=== PATIENT | female | born 1995 | race American Indian/Alaskan Native ===

== ENCOUNTER 2018-04-19 14:30 | Emergency (ER) | payer SELFPAY ==
[2018-04-19 14:46] VITALS: BP 129/91
[2018-04-19 15:28] LABS: HCG Qualitative,Urine Negative (Negative)
[2018-04-19 15:32] LABS: Bilirubin,Urine NEG (Negative); Blood,Urine NEG (Negative); Color,Urine Yellow (Yellow); Hyaline Casts,Urine 1 /LPF; Mucus,Urine FEW /HPF; Protein,Urine <15 mg/dL mg/dL (Negative); Urobilinogen,Urine < 2.0 mg/dL (<2.0)
== END 2018-04-19 21:15 | disposition left against medical advice (07) ==
LOC: ED 14:30
DX: R10.2 Pelvic and perineal pain (principal); Z53.21 Procedure and treatment not carried out due to patient leaving prior to being seen by health care provider
CPT/HCPCS: 81001; 81025

== ENCOUNTER 2021-10-24 08:56 | Emergency (ER) | payer MEDICAID ==
[2021-10-24 09:01] VITALS: BP 126/63
--- NOTE | 2021-10-24 09:38 | Emergency Department Report ---
ED General Adult HPI - General Chief complaint: Vaginal Bleeding Stated complaint: , BLEEDING Time Seen by Provider: 10/24/21 09:03 Source: patient, RN notes reviewed Mode of arrival: Ambulatory Limitations: No Limitations - History of Present Illness Initial comments: During the history and physical examination, I am chaperoned by Briana Penn The patient is a 26-year-old female. She is not known to myself previously. She is 3, para 1. She has a history of miscarriage x1, very distant history of gonorrhea/chlamydia, and also reports history of bariatric gastric sleeve surgery a few years ago. AREA LOSS PREVENTION MANAGER: [employer] The patient presents to the ER today with a complaint of painless vaginal bleeding for 2 days. It is now resolved. She denies additional complaints, trauma, heavy lifting, and irritative/obstructive urinary symptoms. She also denies recent vigorous sexual intercourse. -: Gradual, days(s) Consistency: intermittent, now resolved Improves with: none Worsens with: none Associated Symptoms: denies other symptoms - Related Data Previous Rx's Medication Instructions Recorded Last Taken Type Amoxicillin 500 mg PO TID 7 Days tablet 10/17/14 Unknown Rx Allergies Allergy/AdvReac Type Severity Reaction Status Date / Time No Known Allergies Allergy Unverified 10/25/13 17:10 ED Review of Systems ROS: Stated complaint: , BLEEDING Other details as noted in HPI Comment: All other systems reviewed and negative Gastrointestinal: denies: abdominal pain Genitourinary: other (Vaginal bleeding). denies: urgency, dysuria ED Past Medical Hx - Past Medical History Hx Asthma: Yes (young age) - Social History Smoking Status: Never Smoker Substance Use Type: Other - Medications Home Medications: Home Medications Medication Instructions Recorded Confirmed Last Taken Type Amoxicillin 500 mg PO TID 7 Days tablet 10/17/14 Unknown Rx ED Physical Exam - General Limitations: No Limitations General appearance: alert, in no apparent distress - Head Head exam: Present: atraumatic, normocephalic - Eye Eye exam: Present: normal appearance, EOMI. Absent: nystagmus - ENT ENT exam: Present: normal exam, normal orophraynx, mucous membranes moist, normal external ear exam - Neck Neck exam: Present: normal inspection, full ROM. Absent: tenderness, meningis mus - Respiratory Respiratory exam: Present: normal lung sounds bilaterally. Absent: respiratory distress, wheezes, rales, rhonchi, stridor, decreased breath sounds - Cardiovascular Cardiovascular Exam: Present: regular rate, normal rhythm, normal heart sounds. Absent: bradycardia, tachycardia, irregular rhythm, systolic murmur, diastolic murmur, rubs, gallop - GI/Abdominal GI/Abdominal exam: Present: soft. Absent: distended, tenderness, guarding, rebound, rigid, pulsatile mass - External exam: Present: normal external exam (Patient provided verbal consent for external examination. Chaperoned by Briana Penn). Absent: bleeding - Extremities Exam Extremities exam: Present: normal inspection, full ROM, other (2+ pulses noted in the bilateral upper and lower extremities. There is no palpable cord. negative Homans sign. Muscular compartments are soft. The pelvis is stable.). Absent: pedal edema, calf tenderness - Back Exam Back exam: Present: normal inspection, full ROM. Absent: tenderness, CVA tenderness (R), CVA tenderness (L), paraspinal tenderness, vertebral tenderness - Neurological Exam Neurological exam: Present: alert, oriented X3, normal gait, other (No facial droop. Tongue midline. Extraocular movements intact bilaterally. Facial sensation intact to light touch in V1, V2, V3 distribution bilaterally. 5 and a 5 strength in 4 extremities. Sensation intact to light touch in 4 extrem ities.). Absent: motor sensory deficit - Psychiatric Psychiatric exam: Present: normal affect, normal mood - Skin Skin exam: Present: warm, dry, intact, normal color. Absent: rash ED Course Vital Signs 10/24/21 10/24/21 09:00 09:01 Temperature 97.9 F 97.9 F Pulse Rate 83 84 Respiratory 18 18 Rate Blood Pressure 126/63 Blood Pressure 126/63 [Right] O2 Sat by Pulse 98 98 Oximetry - Reevaluation(s) Reevaluation #1: 10/24/21 11:32 Differential diagnosis, including but not limited to: Miscarriage, threatened versus inevitable, , versus ectopic Assessment and plan: 26-year-old female, who was afebrile, with reassuring vital signs, with a soft benign belly, without rebound, guarding or peritoneal signs, stable H&H, no vaginal bleeding my examination, contaminated urine sample, but with no irritative or obstructive urinary symptoms, likely presenting with threatened miscarriage. Rh pending, ultrasound results pending. Discussed this with the patient. She articulated understanding. Reassess after results have completed 10/24/21 12:52 Rh+. Ultrasound confirms intrauterine . Feels improved. On cell phone. No acute distress. Belly soft on repeat exam. Suspicious for threatened miscarriage versus failed . Expectant management, outpatient follow-up, return precautions reviewed. ED Medical Decision Making - Lab Data Result diagrams: 10/24/21 09:58 Vital Signs 10/24/21 10/24/21 09:00 09:01 Temperature 97.9 F 97.9 F Pulse Rate 83 84 Respiratory 18 18 Rate Blood Pressure 126/63 Blood Pressure 126/63 [Right] O2 Sat by Pulse 98 98 Oximetry - Radiology Data Radiology results: pending, report reviewed, image reviewed ULTRASOUND OBSTETRIC INDICATION / CLINICAL INFORMATION: vag bleed. TECHNIQUE: Transabdominal and Transvaginal. COMPARISON: None available. FINDINGS: GESTATIONAL SAC: Well-defined oval shape and intrauterine in location. Gestational sac measures 13.9 mm which would correspond to a 6 week 2 day gestation. YOLK SAC: No yolk sac is seen. EMBRYO/FETUS: No pole is seen. There is fluid noted in the cervix. ADNEXA: No significant abnormality. FREE FLUID: None. ADDITIONAL FINDINGS: None. IMPRESSION: 1. Gestational sac is identified within the uterine cavity. No yolk sac or pole is identified within this. Gestational sac size would correspond to a 6 week 2 day gestation. This appears to be an empty gestational sac. Signer Name: Colby Butt MD Signed: 10/24/2021 10:37 AM Workstation Name: [id number] Critical care attestation.: If time is entered above; I have spent that time in minutes in the direct care of this critically ill patient, excluding procedure time. ED Disposition Clinical Impression: Threatened miscarriage Disposition: 01 HOME / SELF CARE / HOMELESS Is pt being admited?: No Does the pt Need Aspirin: No Condition: Stable Instructions: Threatened Miscarriage Additional Instructions: Rest, avoid heavy lifting, and strenuous physical activities. Do not engage in sexual sexual activity, or contact athletics until cleared to do so by her primary care doctor or senior microstrategy developer. Patient is likely having a threatened miscarriage. Ultrasound today suggested that the patient is 6 weeks and 2 days . Laboratory studies were otherwise nonactionable. We do recommend the patient follow-up with an outpatient numerical control tool programmer within the next 3 days for repeat checkup and evaluation. Please return to the emergency room right away with new pain, worsened pain, migration of pain, projectile vomiting, change in mental status, confusion, inability to tolerate liquid feeds, new, worsened or different symptoms not present on the initial emergency room evaluation. Return right away for bleeding more than 2 pads soaked per hour Referrals: PRIMARY CAREMD [Primary Care Provider] - 3-5 Days [facility] [Provider Group] - 3-5 Days Forms: Work/School Release Form(ED)
[2021-10-24 10:09] LABS: Bacteria,Urine 1+ /HPF (Negative); Bilirubin,Urine NEG (Negative); Blood,Urine LG (Negative); Color,Urine Yellow (Yellow); Mucus,Urine 3+ /HPF
[2021-10-24 10:23] LABS: Basophils % (Auto) 0.5 % (0.0-1.8); Eosinophils # (Auto) 0.1 K/mm3 (0.0-0.4); Eosinophils % (Auto) 1.5 % (0.0-4.3); Hematocrit 41.1 % (30.3-42.9); Hemoglobin 13.1 gm/dl (10.1-14.3); Lymphocytes # (Auto) 2.2 K/mm3 (1.2-5.4); Lymphocytes % (Auto) 33.5 % (13.4-35.0); Mean Corpuscular HGB Conc 32 % (30-34); Mean Corpuscular Volume 90 fl (79-97); Monocytes # (Auto) 0.6 K/mm3 (0.0-0.8); Monocytes % (Auto) 9.2 % (0.0-7.3); Platelet Count 332 K/mm3 (140-440); Red Blood Count 4.57 M/mm3 (3.65-5.03)
[2021-10-24] MEDS ORDERED: ONDANSETRON 4 MG ODT TAB PO PRN (11:33)
[2021-10-24] MEDS ORDERED: ACETAMINOPHEN 325 MG TAB PO PRN (11:33)
--- NOTE | 2021-10-24 11:41 | Ultrasound Report ---
ULTRASOUND OBSTETRIC INDICATION / CLINICAL INFORMATION: vag bleed. TECHNIQUE: Transabdominal and Transvaginal. COMPARISON: None available. FINDINGS: GESTATIONAL SAC: Well-defined oval shape and intrauterine in location. Gestational sac measures 13.9 mm which would correspond to a 6 week 2 day gestation. YOLK SAC: No yolk sac is seen. EMBRYO/FETUS: No pole is seen. There is fluid noted in the cervix. ADNEXA: No significant abnormality. FREE FLUID: None. ADDITIONAL FINDINGS: None. IMPRESSION: 1. Gestational sac is identified within the uterine cavity. No yolk sac or pole is identified w ithin this. Gestational sac size would correspond to a 6 week 2 day gestation. This appears to be an empty gestational sac. Signer Name: Colby Butt MD Signed: 10/24/2021 11:37 AM Workstation Name: [id number]
== END 2021-10-24 13:09 | disposition home or self-care (01) ==
LOC: ED 08:56
DX: O46.91 Antepartum hemorrhage, unspecified, first trimester (principal); Z3A.01 Less than 8 weeks gestation of pregnancy; J45.909 Unspecified asthma, uncomplicated
CPT/HCPCS: 36415; 76801; 76817; 81001; 84702; 85025; 86850; 86900; 86901; 99284